=== PATIENT | female | born 1955 | race Two or more races ===

== ENCOUNTER 2017-12-06 16:06 | Emergency (ER) | payer SELFPAY ==
[~2017-12-06] VITALS: Ht 165.1 cm; Wt 70.3 kg
[2017-12-06] MEDS ORDERED: ONDANSETRON HCL/PF 4 MG/2 ML VIAL IV ONE (17:00)
[2017-12-06] MEDS ORDERED: TDAP [DIPH/PERTUSSIS/TET] 0.5 ML VIAL IM ONE ×2 (17:00→17:20)
[2017-12-06] MEDS ORDERED: MORPHINE SULFATE INJ 2 MG/ML DISP.SYRIN IV ONE (17:00)
[2017-12-06] MEDS ORDERED: ONDANSETRON HCL/PF 4 MG/2 ML VIAL ONE (17:17)
[2017-12-06] MEDS ORDERED: MORPHINE SULFATE INJ 4 MG/ML DISP.SYRIN ONE (17:18)
[2017-12-06] MEDS ORDERED: IBUPROFEN 600 MG TABLET PO ONE ×2 (18:45→19:00)
[2017-12-06 19:28] VITALS: BP 144/94
== END 2017-12-06 19:47 | disposition home or self-care (01) ==
LOC: ER 16:10
DX: S52.592A Other fractures of lower end of left radius, initial encounter for closed fracture (principal); W01.0XXA Fall on same level from slipping, tripping and stumbling without subsequent striking against object, initial encounter; Y93.89 Activity, other specified; Y92.89 Other specified places as the place of occurrence of the external cause; Y99.8 Other external cause status
CPT/HCPCS: 29105; 70450; 73100; 90471; 90715; 96374; 96375; 99284; A4606; J2270; J2405; Z7610